=== PATIENT | female | born 2005 | race Hispanic/Latino ===

== ENCOUNTER 2025-06-04 17:09 | Emergency (ER) | payer OTHER ==
[~2025-06-04] VITALS: Ht 165.1 cm; Wt 80.7 kg
--- NOTE | 2025-06-04 17:24 | ERN ---
ED Note History of Present Illness Stated Complaint: LEFT HIP, LOWER BACK Chief Complaint: Mechanical Fall Time Seen by MD: 17:10 Time Seen by Midlevel: 17:10 Dictation: The patient is a 19-year-old female with no past medical history who presents to the emergency department with complaints of left lower back pain and left hip pain after an accidental fall today around 120pm. Patient reports that she was playing musical chairs and somebody removed the chair causing her to fall on her buttocks. Patient denies any urinary or fecal incontinence, denies any numbness or paresthesias to lower extremities. Denies any head injury or any other injury from the fall. Allergies: Coded Allergies: No Known Allergies (Unverified Allergy, Unknown, 06/04/25) Past Medical History Past Medical History: No Pertinent History Surgical History: None LMP: May 30, 2025 RN Note Reviewed/Agreed w/PFSH: Yes Review of System Dictation Constitutional: Negative for fever,chills, and weight loss Eyes: Negative for injury, pain,redness, and discharge ENT: Negative for injury,pain or swelling Cardiovascular: Negative for chest pain, palpitations, and edema Respiratory: Negative for shortness of breath, cough, and wheezing, Abdomen/GI: Negative for abdominal pain, nausea, vomiting, diarrhea, and constipation Back: Positive for low back pain : Negative for injury, bleeding and discharge MS/Extremity: Positive for left hip pain Skin: Negative for rash, and discoloration Neuro: Negative for headache, weakness, numbness, tingling, and seizure Psych: Negative for suicide ideation, homicidal ideation, and hallucinations Initial Vital Sign VS Vital Signs Date Time Temp Pulse Resp B/P (MAP) Pulse Ox O2 Delivery O2 Flow Rate FiO2 06/04/25 17:10 98.6 99 16 134/78 100 Room Air* 0 21 Physical Exam Dictation Vital Signs reviewed General Appearance: Alert, oriented x 3, no acute distress, well developed, nourished. Head and Face: non-traumatic. Eyes: PERRL, pink conjunctivas, eyelid no trauma, anterior chamber with arcus senilis. Ears: Pinnas intact and no signs of trauma or erythema ear canals clear and no discharge TM no erythema Nose: No discharge, no bleeding. Oropharynx: Mouth normal, tongue pink. pharynx clear,no erythema, tonsils no exudates, no abscesses noted, mucous membrane moist Neck: Supple, non-tender, no thyromegaly, no masses, no JVD, no bruits Breast:Deferred Chest:No tenderness, no crepitus, no paradoxical movement, no retractions Lungs:Clear, well-ventilated, symmetric, no rales, no wheezing, no rhonchi, no stridor, good breath sounds bilaterally Heart: Regular rate, regular rhythm, no murmur, no gallops Vascular: no peripheral edema, dorsalis pedis 3+ bilaterally Abdomen: Soft, positive bowel sounds, nondistended, no guarding, nontender, no rebound, no masses no hepatomegaly, no splenomegaly, no Zhong's sign, no hernias. Rectal: Deferred Genital: Deferred Neurological: Normal speech, motor function intact, sensory function intact Musculoskeletal: Neck nontender, full range of motion, back nontender, full range of motion, Extremities: nontender, full range of motion tenderness to left hip and left lower back upon palpation Skin: Color pink, dry, no turgor, no rash, no lacerations, no abrasions, no contusions. Lymphatic: Deferred Results (Laboratory/Radiology) Laboratory/Radiology Laboratory Tests Test 06/04/25 17:38 Urine HCG, Qualitative NEGATIVE (NEGATIVE) REASON: fall,pain ORDERING PHYSICIAN: FLORENCE SILVEIRA SUPERVISOR BONDING PROCEDURE: LUMB 2 3VW - LUMBAR SPINE 2-3VWS EXAM: CR Lumbar Spine, 3 View. CLINICAL HISTORY: fall,pain COMPARISON: None provided. FINDINGS: BONES: No acute fracture or aggressive appearing osseous lesion. ALIGNMENT: Alignment is within normal limits. No significant scoliosis. DISCS / DEGENERATIVE CHANGES: The disc spaces are preserved. SOFT TISSUES: The soft tissues are unremarkable. IMPRESSION: No acute lumbar spine abnormality evident. /[place] REASON: fall,pain ORDERING PHYSICIAN: FLORENCE SILVEIRA SUPERVISOR BONDING PROCEDURE: HIP U 2V L - HIP UNILAT 2-3VW LEFT EXAM: CR left Hip, 3 View. CLINICAL HISTORY: fall,pain COMPARISON: None provided. FINDINGS: BONES: No acute fracture or aggressive appearing osseous lesion. JOINTS: No dislocation. The joint spaces are normal. SOFT TISSUES: The soft tissues are unremarkable. IMPRESSION: No acute osseous abnormality. /[facility] Labs Reviewed?: Yes ED Course ED Course Orders Procedure Category Date Status Time ,Urine Test LAB 06/04/25 Complete 17:18 Lumbar Spine 2-3vws RAD 06/04/25 Resulted 17:50 Hip Unilat 2-3vw Left RAD 06/04/25 Resulted 17:50 Cyclobenzaprine Hcl PHA 06/04/25 In Process (Cyclobenzaprine Hcl 18:00 Ketorolac 60mg/2ml PHA 06/04/25 In Process (Toradol 60mg/2ml) 18:00 Hydrocodone/Apap PHA 06/04/25 Complete 5/325 ([place] 5/325mg) 19:00 Current Medications Medications (Trade) Dose Ordered Sig/Radha Route PRN Reason Start Time Stop Time Status Last Admin Dose Admin Acetaminophen/ Hydrocodone Bitart (NORco 5/325MG) 1 tab ONCE ONCE PO 06/04/25 19:00 06/04/25 19:01 DC 06/04/25 19:24 Cyclobenzaprine HCl (Cyclobenzaprine HCl) 10 mg ONCE PO 06/04/25 18:00 06/04/25 23:30 06/04/25 18:14 Ketorolac Tromethamine (toRADol 60MG/ 2ML) 60 mg ONCE IM 06/04/25 18:00 06/04/25 23:30 06/04/25 18:13 Vital Signs Date Time Temp Pulse Resp B/P (MAP) Pulse Ox O2 Delivery O2 Flow Rate FiO2 06/04/25 19:33 98.6 89 16 134/78 99 Room Air* 0 21 06/04/25 17:11 98.6 89 16 134/78 99 Room Air 0 06/04/25 17:10 98.6 99 16 134/78 100 Room Air* 0 21 Medical Decision Making MDM The patient is a 19-year-old female with no past medical history who presents to the emergency department with complaints of left lower back pain and left hip pain after an accidental fall today around 120pm. Patient reports that she was playing musical chairs and somebody removed the chair causing her to fall on her buttocks. Patient denies any urinary or fecal incontinence, denies any numbness or paresthesias to lower extremities. Denies any head injury or any other injury from the fall. X-rays showed no acute fractures or dislocations. Patient reports improving in pain with medication. Patient continues neurovascularly intact, in no acute distress, ambulatory. Patient will be discharged to follow up with PCP. We will sent patient home with pain medications. Differential diagnosis: Lumbar fracture, muscle strain, hip fracture Need for hospitalization: Patient does not meet criteria for hospitalization. There are no social concerns with this patient. DX & DISP Disposition: Discharge Departure Impression: Primary Impression: Low back strain Condition: Stable Scripts Lidocaine (Lidocaine) 4 % Adh..patch 1 PATCH TP DAILY for 10 Days, #10 PATCH 0 Refills Prov: FLORENCE SILVEIRA 06/04/25 Cyclobenzaprine HCl (Flexeril) 10 Mg Tab 10 MG PO TID for muscle sstiffness, #14 TAB 0 Refills Prov: FLORENCE SILVEIRA 06/04/25 Ibuprofen (Ibuprofen) 600 Mg Tablet 600 MG PO Q6H PRN for PAIN, #15 TAB Prov: FLORENCE SILVEIRA 06/04/25 Additional Instructions: Your x-ray does not show any fractures. Please take your medications as prescribed. Follow up with the your primary doctor in 1-2 days. If anything worsens please return to ER. FOLLOW-UP WITH PRIMARY CARE PROVIDER IN 1 TO 2 DAYS. TAKE MEDICATIONS DIRECTED HERE IN THE EMERGENCY ROOM. OKAY TO CONTINUE HOME MEDICATIONS UNLESS OTHERWISE DISCUSSED DURING YOUR VISIT IN THE EMERGENCY ROOM TODAY. RETURN TO YOUR NEAREST EMERGENCY ROOM IF SYMPTOMS WORSEN OR IF THERE IS NO IMPROVEMENT. CALL 911 IF YOU NEED IMMEDIATE ASSISTANCE. TAKE TYLENOL [id number] NEEDED AND IF NO CONTRAINDICATIONS ARE PRESENT. INCREASE ORAL HYDRATION. A WOUND CULTURE OR URINE CULTURE WAS ORDERED HERE IN THE EMERGENCY ROOM DEPARTMENT PLEASE FOLLOW-UP WITH PRIMARY CARE PROVIDER AND ADVISE THEM TO GET REPEAT PORTS FROM OUR FACILITY. IF YOU HAD ANY STEVE WRAP/SPLINTS THAT WERE APPLIED HERE, PLEASE DO NOT REMOVE THEM UNTIL YOU SEE YOUR PRIMARY CARE OR SPECIALTY. Time of Disposition: 19:40 I have reviewed the case, and I agree with, Diagnosis and Plan JORDANAFLORENCE YUNG Jun 04, 2025 17:24
[2025-06-04] MEDS: CYCLOBENZAPRINE HCL 10 MG TABLET PO SCH (18:14)
--- NOTE | 2025-06-04 19:17 | HMCIMG ---
EXAM: CR left Hip, 3 View. CLINICAL HISTORY: fall,pain COMPARISON: None provided. FINDINGS: BONES: No acute fracture or aggressive appearing osseous lesion. JOINTS: No dislocation. The joint spaces are normal. SOFT TISSUES: The soft tissues are unremarkable. IMPRESSION: No acute osseous abnormality. /[place]
--- NOTE | 2025-06-04 19:17 | HMCIMG ---
EXAM: CR Lumbar Spine, 3 View. CLINICAL HISTORY: fall,pain COMPARISON: None provided. FINDINGS: BONES: No acute fracture or aggressive appearing osseous lesion. ALIGNMENT: Alignment is within normal limits. No significant scoliosis. DISCS / DEGENERATIVE CHANGES: The disc spaces are preserved. SOFT TISSUES: The soft tissues are unremarkable. IMPRESSION: No acute lumbar spine abnormality evident. /[place]
[2025-06-04] MEDS: HYDROcodone/APAP 5/325 1 TAB TABLET PO ONE (19:24)
[2025-06-04 19:33] VITALS: BP 134/78; PULSE 89; RESP 16; TEMP 98.6; O2SAT 99
[2025-06-04] MEDS ORDERED: LIDO1ADH82 TP (19:41)
[2025-06-04] MEDS ORDERED: CYCL10TA16 PO (19:41)
[2025-06-04] MEDS ORDERED: IBUP-1492 PO (19:41)
== END 2025-06-04 20:03 | disposition home or self-care (01) ==
LOC: EDH 17:09
DX: S39.012A Strain of muscle, fascia and tendon of lower back, initial encounter (principal); M25.552 Pain in left hip; W18.39XA Other fall on same level, initial encounter; Y93.89 Activity, other specified; Y92.89 Other specified places as the place of occurrence of the external cause; Y99.0 Civilian activity done for income or pay
CPT/HCPCS: 99284; 81025; 73502; 72100; 96372; J1885